=== PATIENT | male | born 1990 | race Caucasian/White ===

== ENCOUNTER 2016-12-17 14:33 | Emergency (ER) | payer OTHER ==
[~2016-12-17] VITALS: Ht 190.5 cm; Wt 96.2 kg
[2016-12-17 16:13] VITALS: BP 138/70
== END 2016-12-17 16:17 | disposition home or self-care (01) ==
LOC: ER 14:33
DX: S50.811A Abrasion of right forearm, initial encounter (principal); S50.812A Abrasion of left forearm, initial encounter; S30.810A Abrasion of lower back and pelvis, initial encounter; S40.211A Abrasion of right shoulder, initial encounter; M25.531 Pain in right wrist; M79.642 Pain in left hand; F10.99 Alcohol use, unspecified with unspecified alcohol-induced disorder; F15.10 Other stimulant abuse, uncomplicated; V29.9XXA Motorcycle rider (driver) (passenger) injured in unspecified traffic accident, initial encounter; Y93.I9 Activity, other involving external motion; Y92.488 Other paved roadways as the place of occurrence of the external cause; Y99.8 Other external cause status

== ENCOUNTER 2019-10-09 20:28 | Emergency (ER) | payer OTHER ==
[~2019-10-09] VITALS: Ht 190.5 cm; Wt 117.9 kg
[2019-10-09 21:10] LABS: URINE BILIRUBIN NEGATIVE (Negative); URINE BLOOD NEGATIVE (Negative); URINE CLARITY CLEAR; URINE COLOR YELLOW; URINE GLUCOSE-RANDOM* NEGATIVE (Negative); URINE KETONES NEGATIVE (Negative); URINE LEUKOCYTES-REFLEX NEGATIVE (Negative); URINE NITRITE-REFLEX NEGATIVE (Negative); URINE PROTEIN (DIPSTICK) NEGATIVE (Negative); URINE UROBILINOGEN 0.2 E.U./dl (0.2-1.0)
[2019-10-09] MEDS ORDERED: TIZANIDINE HCL2 M1 PO (22:35)
[2019-10-09 22:53] VITALS: BP 128/92
== END 2019-10-09 22:56 | disposition home or self-care (01) ==
LOC: ER 20:28
PROVIDERS: Emergency Medicine
DX: M54.5 Low back pain (principal)